=== PATIENT | female | born 1955 | race Caucasian/White ===

== ENCOUNTER → 2016-08-08 | Outpatient (CLI) | payer MEDICAID | LOC: FIMAGING 10:53 | PROVIDERS: ATTEND Family Medicine | DX: M41.35 Thoracogenic scoliosis, thoracolumbar region (principal); M51.36 Other intervertebral disc degeneration, lumbar region; M47.816 Spondylosis without myelopathy or radiculopathy, lumbar region ==

== ENCOUNTER → 2018-09-16 | Outpatient (CLI) | payer MEDICAID | LOC: FIMAGING 14:25 | DX: Z12.31 Encounter for screening mammogram for malignant neoplasm of breast (principal) ==